=== PATIENT | male | born 1945 | race Hispanic/Latino ===

== ENCOUNTER 2017-01-02 10:02 | Day surgery (SDC) | payer MEDICARE ==
[2016-06-07 14:57] VITALS: BMI 39.5
[2017-01-02] MEDS ORDERED: Gentamicin 160 MG in Sodium Chloride 0.9% 100 ML IVPB ONE (11:31)
[2017-01-02] MEDS ORDERED: Ciprofloxacin 400mg/200ml D5W 400 MG/200 ML BAG IVPB ONE (11:37)
[2017-01-02] MEDS ORDERED: Iodixanol 320 MG/ML 200 ML BOTTLE IV ONE (11:38)
[2017-01-02] MEDS ORDERED: Sodium Chloride 0.9% 500 ML IV ONE (11:45)
[2017-01-02] MEDS ORDERED: Lactated Ringer's 1,000 ML IV ONE ×2 (11:45→13:25)
[2017-01-02] MEDS ORDERED: Propofol 10 mg/ml Inj (20 ML) ONE (11:53)
[2017-01-02] MEDS ORDERED: HYDROmorphone 0.5 mg/0.5 ml ISec IVP PRN (12:37)
[2017-01-02] MEDS ORDERED: Sodium Chloride 0.9% 1,000 ML IV ONE (12:39)
--- NOTE | 2017-01-02 12:43 | PCM.SURG1 ---
Surgeon's Initial Post Op Note - Surgeon's Notes Surgeon: Rodriguez Cell Lead: ham Type of Anesthesia: General LMA Anesthesia Administered By: staff Pre-Operative Diagnosis: Bladder Tumor Operative Findings: BT Post-Operative Diagnosis: BT Operation Performed: Cysto/bx fulguration Specimen/Specimens Removed: bt Estimated Blood Loss: EBL {In ML}: 10 Blood Products Given: N/A Drains Used: No Drains Post-Op Condition: Good Date of Surgery/Procedure: 01/02/17 Time of Surgery/Procedure: 12:42
[2017-01-02] MEDS ORDERED: Lidocaine 2% Jelly (Uro-Jet) ONE (12:46)
[2017-01-02] MEDS ORDERED: Lactated Ringer's 500 ML IV SCH (13:30)
[2017-01-02 14:14] VITALS: BP 165/72; PULSE 90; RESP 18; TEMP 97; O2SAT 99
--- NOTE | 2017-01-02 14:47 | RAD ---
HISTORY: HX. OF BT COMPARISON: 03/14/2016 FINDINGS: BOWEL: No obstruction. 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 Left lateral marginal osteophyte L2-3 level most notable OTHER FINDINGS: Prior left ureteral stent removed. No interval left urolithiasis appreciated. Two tiny inferior right hemipelvic phleboliths renoted IMPRESSION: Interval left ureteral stent removal. No interval urolithiasis appreciated
--- NOTE | 2017-01-03 00:20 | OP ---
PROCEDURE DATE: 01/02/2017 PREOPERATIVE DIAGNOSES: History of bladder tumor, left hydronephrosis and possibly ureteral calculi. PROCEDURE: Cystoscopy and biopsy and fulguration of tumor. DESCRIPTION OF PROCEDURE: As follows; prior to the procedure, detailed informed consent was obtained from the patient as well as description of the limitations of the procedure. The patient was aware that the stone may not be able to be addressed at this time if there was a bladder tumor present. He signed the consent and was willing to accept the risks and limitations and brought into the room and draped and prepped in the usual manner. A timeout was taken according to the rules and regulations of [facility]. The patient was cystoscoped with a #21 Storz panendoscope. The pendulous and membranous urethra were normal. Prostatic urethra showed evidence of a previous prostate resection. There were several friable lesions on the floor of the bladder which were small, they were biopsied and fulgurated. There was a larger mass superiorly at approximately 11 o'clock. Because of the angle, it was difficult to reach this tumor and it was biopsied and fulgurated. Complete resection was impossible. Further therapy will depend on the pathology results. The left ureteral orifice could not be localized, it was not clearly visible and no attention was brought to further delineating the location of the tumor since retrograde was not possible since there was a tumor present. Trenton Frias MD
== END 2017-01-02 14:56 | disposition home or self-care (01) ==
LOC: C.SDS 10:02
PROVIDERS: ATTEND Urology
DX: C67.9 Malignant neoplasm of bladder, unspecified (principal)
CPT/HCPCS: 52234; 74000; 88305; J0744; J1580; J7040; J7120